=== PATIENT | male | born 1990 | race Caucasian/White ===

== ENCOUNTER 2021-07-29 10:48 | Emergency (ER) | payer MEDICAID ==
[2021-07-29] MEDS ORDERED: Sodium Chloride 0.9% 1,000 ML IV SCH (11:15)
[2021-07-29] MEDS ORDERED: Ibuprofen Susp 100 MG/5 ML 5 ML UD Cup PEGTUBE ONE (11:16)
--- NOTE | 2021-07-29 11:44 | CR ---
[id number] RAD/RAD Chest PA or AP 1V EXAM: SINGLE VIEW CHEST. INDICATION: FEVER RHONCHI COMPARISON: NO PREVIOUS SIMILAR EXAM IS AVAILABLE FINDINGS: There is a tracheostomy There are minimal bilateral interstitial changes The patient is rotated to the right The cardiac silhouette is mildly prominent IMPRESSION: MINIMAL INTERSTITIAL CHANGES POSSIBLE VIRAL PNEUMONIA John Barrera MD 07/29/21 1988 Thank you for allowing us to participate in the care of your patient.
[2021-07-29 11:48] LABS: CHLORIDE,CL 100 mmol/L (98-107); SODIUM,NA 137 mmol/L (136-145)
[2021-07-29] MEDS ORDERED: Ciprofloxacin in D5W 400 MG in Premix Bag 1 BAG IV ONE ×2 (12:08)
--- NOTE | 2021-07-29 12:56 | EDM.PDOC ---
ED HPI GENERAL MEDICAL PROBLEM - General Chief Complaint: General Stated Complaint: CODE 1 Time Seen by Provider: 07/29/21 10:50 - History of Present Illness INITIAL COMMENTS - FREE TEXT/NARRATIVE: Arrived via EMS from [place] with report of fever. Recently had PEG tube change per report. They suspect he aspirated on vomit/tube feeding. Has trach, has urinary cath, has PEG tube. 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) Respiratory History: Reports: Other (See Below) (trach) Gastrointestinal History: Reports: Other (See Below) (has PEG tube) Neurological History: Reports: Brain Injury, Seizure, Other (See Below) (hypoxic brain injury) Psychiatric History: Reports: Addiction Social & Family History - Alcohol Use Alcohol Use History: Yes Alcohol Use Comment: Records show hx of alcoholsim in past - Recreational Drug Use Recreational Drug Use: Yes Recreational Drug Type: Reports: Methamphetamine Recreational Drug Use Comment: 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 - Living Situation & Occupation Living situation: Reports: Extended Care Facility ED ROS GENERAL - Review of Systems Review Of Systems: Unable To Obtain Reason Not Obtained: nonverbal ED EXAM, GENERAL - Physical Exam Exam: See Below Exam Limited By: Altered Mental Status General Appearance: Alert, No Apparent Distress Eye Exam: Bilateral Eye: EOMI Ears: Normal External Exam Nose: Normal Inspection, Normal Mucosa, No Blood Throat/Mouth: No Airway Compromise, Other (dry) Head: Atraumatic, Normocephalic Neck: Non-Tender Respiratory/Chest: Rhonchi Cardiovascular: Regular Rate, Rhythm, No Edema, Tachycardia GI/Abdominal: Soft, Non-Tender, No Distention, Other (PEG) (Male) Exam: Other (urinary cath) Extremities: Non-Tender, Normal Capillary Refill Neurological: Alert, Slow to Respond, Sensory/Motor Deficit, Other (hypoxic brain injury) Psychiatric: Normal Affect, Other (at baseline) Skin Exam: Warm, Dry, Normal Color, No Rash Lymphatic: No Adenopathy Course - Vital Signs Last Recorded V/S: Last Vital Signs Temp 98.2 F 07/29/21 12:55 Pulse 99 07/29/21 12:21 Resp 14 07/29/21 12:21 BP 104/48 L 07/29/21 12:21 Pulse Ox 99 07/29/21 12:21 - Orders/Labs/Meds Orders: Active Orders 24 hr Category Date Time Status Urinary Catheter Assessment [RC] ASDIRECTED Care 07/29/21 13:49 Active Urinary Catheter Insertion [Insert Urinary Catheter] [ Care 07/29/21 14:00 Ordered OM.PC] Q24H Urinary Catheter Removal [RC] PER UNIT ROUTINE Care 07/29/21 13:48 Active CULTURE BLOOD [BC] Stat Lab 07/29/21 10:55 Received CULTURE BLOOD [BC] Stat Lab 07/29/21 11:25 Received Sodium Chloride 0.9% [Normal Saline] 1,000 ml Med 07/29/21 11:15 Active IV ASDIRECTED Blood Culture x2 Reflex Set [OM.PC] Stat Oth 07/29/21 10:57 Ordered Medication Orders Sodium Chloride (Normal Saline) 1,000 mls @ 150 mls/hr IV ASDIRECTED GREGORIO Last Admin: 07/29/21 11:05 Dose: 150 mls/hr Documented by: PUNEET Labs: Laboratory Tests 07/29/21 07/29/21 07/29/21 Range/Units 11:05 11:25 11:25 WBC 12.5 H (4.0-10.0) x10^3/uL RBC 4.57 (4.5-6.0) x10^6/uL Hgb 13.3 L (14.0-18.0) g/dL Hct 39.5 L (40.0-52.0) % MCV 86.4 (78.0-93.0) fL MCH 29.1 (26.0-32.0) pg MCHC 33.7 (32.0-36.0) g/dL RDW Coeff of Vanessa 12.6 (10.0-15.0) % Plt Count 196 (130-400) x10^3/uL Immature Gran % (Auto) 0.20 (0.00-0.43) % Neut % (Auto) 84.9 H (50.0-80.0) % Lymph % (Auto) 7.8 L (25.0-50.0) % [place] % (Auto) 6.8 (2.0-11.0) % Eos % (Auto) 0.1 (0.0-4.0) % Baso % (Auto) 0.2 (0.2-1.2) % Neut # (Auto) 10.6 H (1.8-7.7) x10^3/uL Lymph # (Auto) 1.0 (1.0-4.8) x10^3/uL [place] # (Auto) 0.9 H (0.0-0.8) x10^3/uL Eos # (Auto) 0.0 (0.0-0.5) x10^3/uL Baso # (Auto) 0.0 (0.0-0.2) x10^3/uL Immature Gran # (Auto) 0.02 (0.00-0.07) x10^3/uL Sodium 137 (136-145) mmol/L Potassium 4.0 (3.5-5.1) mmol/L Chloride 100 (98-107) mmol/L Carbon Dioxide 27 (21-32) mmol/L Anion Gap 14.0 (5-15) mmol/L BUN 28 H (7-18) mg/dL Creatinine 1.1 (0.70-1.30) mg/dL Est Cr Clr Drug Dosing TNP Estimated GFR (MDRD) > 60 Glucose 142 H (70-99) mg/dL Calcium 8.8 (8.5-10.1) mg/dL Corrected Calcium 9.8 (8.5-10.1) mg/dL Total Bilirubin 1.0 (0.2-1.0) mg/dL AST 37 (15-37) U/L ALT 58 (16-63) U/L Alkaline Phosphatase 134 H (46-116) U/L Total Protein 6.8 (6.4-8.2) g/dL Albumin 2.8 L (3.4-5.0) g/dL Globulin 4.0 Albumin/Globulin Ratio 0.70 Urine Color Yellow (YELLOW) Urine Appearance Cloudy H (CLEAR) Urine pH 7.0 (5.0-8.0) Ur Specific [place] 1.020 Urine Protein >=300 H (NEGATIVE) mg/dL Urine Glucose (UA) Negative (NEGATIVE) mg/dL Urine Ketones Negative (NEGATIVE) mg/dL Urine Occult Blood Large H (NEGATIVE) Urine Nitrite Positive H (NEGATIVE) Urine Bilirubin Small H (NEGATIVE) Urine Urobilinogen 2.0 H (0.2) EU/dL Ur Leukocyte Esterase Large H (NEGATIVE) Urine RBC 40-50 H (NOT SEEN) /HPF Urine WBC >100 H (NOT SEEN) /HPF Ur Squamous Epith Cells Not seen (NOT SEEN) /HPF Amorphous Sediment Few Urine Bacteria Moderate H (NOT SEEN) /HPF Urine Mucus Rare H (NOT SEEN) /LPF Meds: Medications Generic Name Dose Route Start Last Admin Trade Name Freq PRN Reason Stop Dose Admin Sodium Chloride 1,000 mls @ 150 mls/hr 07/29/21 11:15 07/29/21 11:05 Normal Saline IV 150 mls/hr ASDIRECTED GREGORIO Administration Discontinued Medications Generic Name Dose Route Start Last Admin Trade Name Freq PRN Reason Stop Dose Admin Ciprofloxacin/Dextrose 400 mg/ 200 mls @ 200 mls/hr 07/29/21 12:08 07/29/21 14:46 Premix IV 07/29/21 13:07 200 mls/hr STAT ONE Administration Ibuprofen 400 mg 07/29/21 11:16 07/29/21 12:00 Ibuprofen Susp 100 Mg/5 Ml 5 Ml Ud Cup [id number] 07/29/21 11:17 400 mg ONETIME ONE Administration - Re-Assessments/Exams Free Text/Narrative Re-Assessment/Exam: 07/29/21 13:34 Labs including blood cultures taken, attempted sputum culture. CXR show some interstitial changes, possible PNA. Urine shows UTI. Cipro given IV, then will give po. Plan is to send back to assisted with po cipro rx, probiotic rx, increase fluids. O2 sat has remained high 90s on room air. Temp responded to ibuprofen. 07/29/21 14:55 Ok to change PO RX to say per PEG instead Departure - Departure Time of Disposition: 14:40 Disposition: DC/Tfer to [facility] Condition: Good Clinical Impression: UTI (urinary tract infection) Qualifiers: Urinary tract infection type: catheter-associated UTI Indwelling urinary catheter type: indwelling urethral catheter Encounter type: initial encounter Qualified Code(s): T83.511A - Infection and inflammatory reaction due to indwelling urethral catheter, initial encounter Pneumonia Qualifiers: Pneumonia type: aspiration pneumonia Aspiration pneumonia type: due to vomit Laterality: bilateral Lung location: unspecified part of lung Qualified Code(s): J69.0 - Pneumonitis due to inhalation of food and vomit - Discharge Information Instructions: Urinary Tract Infection, Adult, [id number], Hospital-Acquired Pneumonia Referrals: Iesha Braden DO [Primary Care Provider] - Forms: ED Department Discharge Additional Instructions: Back to assisted. Cipro and probiotic as directed. Increase fluids. Follow up with Primary Care Provider on Sunday, sooner if needed. Sepsis Event Note (ED) - Focused Exam Vital Signs: Vital Signs Temp Temp Pulse Resp BP Pulse Ox 07/29/21 12:55 98.2 F 07/29/21 12:21 99 14 104/48 L 99 07/29/21 12:00 102.3 F H 07/29/21 10:48 102.3 F H 112 H 26 H 133/109 H 94 L - Problem List & Annotations (1) UTI (urinary tract infection) SNOMED Code(s): 59488902 Code(s): N39.0 - URINARY TRACT INFECTION, SITE NOT SPECIFIED Status: Acute Current Visit: Yes Qualifiers: Urinary tract infection type: catheter-associated UTI Indwelling urinary catheter type: indwelling urethral catheter Encounter type: initial encounter Qualified Code(s): T83.511A - Infection and inflammatory reaction due to indwelling urethral catheter, initial encounter; N39.0 - Urinary tract infection, site not specified (2) Pneumonia SNOMED Code(s): 157201251 Code(s): J18.9 - PNEUMONIA, UNSPECIFIED ORGANISM Status: Acute Current Visit: Yes Qualifiers: Pneumonia type: aspiration pneumonia Aspiration pneumonia type: due to vomit Laterality: bilateral Lung location: unspecified part of lung Qualified Code(s): J69.0 - Pneumonitis due to inhalation of food and vomit - Problem List Review Problem List Initiated/Reviewed/Updated: Yes - My Orders Last 24 Hours: My Active Orders 07/29/21 10:55 CULTURE BLOOD [BC] Stat 07/29/21 10:57 Blood Culture x2 Reflex Set [OM.PC] Stat 07/29/21 11:15 Sodium Chloride 0.9% [Normal Saline] 1,000 ml IV ASDIRECTED 07/29/21 11:25 CULTURE BLOOD [BC] Stat 07/29/21 13:48 Urinary Catheter Removal [RC] PER UNIT ROUTINE 07/29/21 13:49 Urinary Catheter Assessment [RC] ASDIRECTED 07/29/21 14:00 Urinary Catheter Insertion [Insert Urinary Catheter] [OM.PC] Q24H - Assessment/Plan Last 24 Hours: My Active Orders 07/29/21 10:55 CULTURE BLOOD [BC] Stat 07/29/21 10:57 Blood Culture x2 Reflex Set [OM.PC] Stat 07/29/21 11:15 Sodium Chloride 0.9% [Normal Saline] 1,000 ml IV ASDIRECTED 07/29/21 11:25 CULTURE BLOOD [BC] Stat 07/29/21 13:48 Urinary Catheter Removal [RC] PER UNIT ROUTINE 07/29/21 13:49 Urinary Catheter Assessment [RC] ASDIRECTED 07/29/21 14:00 Urinary Catheter Insertion [Insert Urinary Catheter] [OM.PC] Q24H
== END 2021-07-29 14:40 ==
LOC: VM.ED 10:48
DX: T83.511A Infection and inflammatory reaction due to indwelling urethral catheter, initial encounter (principal); N39.0 Urinary tract infection, site not specified; J69.0 Pneumonitis due to inhalation of food and vomit; Z88.0 Allergy status to penicillin
CPT/HCPCS: 36415; 71045; 80053; 81001; 85025; 87040; 87077; 87186; 96365; 99284-25; A9270-GY; J0744; J7030

== ENCOUNTER 2021-10-18 04:44 | Emergency (ER) | payer MEDICAID | END 2021-10-18 06:15 | LOC: VM.ED 04:44 | DX: T83.098A Other mechanical complication of other urinary catheter, initial encounter (principal); Z88.0 Allergy status to penicillin; Z88.2 Allergy status to sulfonamides; Z88.8 Allergy status to other drugs, medicaments and biological substances | CPT/HCPCS: 51705; 51798; 99283; 99283-25 ==

== ENCOUNTER 2021-11-19 07:55 | Emergency (ER) | payer MEDICAID ==
[2021-11-19 08:30] LABS: CHLORIDE,CL 103 mmol/L (98-107); SODIUM,NA 140 mmol/L (136-145)
[2021-11-19 08:31] LABS: ANION GAP 12.7 mmol/L (5-15)
[2021-11-19] MEDS ORDERED: Sodium Chloride 0.9% Inhalation Soln 5 ML Neb INH PRN (10:40)
[2021-11-19] MEDS ORDERED: Racepinephrine 2.25% 0.5 ML Neb Soln NEB ONE (10:40)
[2021-11-19] MEDS ORDERED: LORazepam 2 MG/ML SDV IVPUSH ONE (12:11)
== END 2021-11-19 12:20 | disposition short-term general hospital (02) ==
LOC: VM.ED 07:55
DX: J39.8 Other specified diseases of upper respiratory tract (principal); Z88.2 Allergy status to sulfonamides; Z88.0 Allergy status to penicillin
CPT/HCPCS: 36415; 71045; 80053; 85025; 85610; 85730; 86140; 94640; 96374; 99284; 99285-25; J2060

== ENCOUNTER 2021-12-25 07:46 | Inpatient (IN) | payer MEDICAID ==
[2021-12-25] MEDS ORDERED: Sodium Chloride 0.9% 10 ML Syringe FLUSH PRN (08:36)
[2021-12-25] MEDS ORDERED: cefTRIAXone 1 GM Vial IVPUSH ONE (09:05)
[2021-12-25 09:21] LABS: PTT,PARTIAL THROMBOPLSTIN TIME 24.4 SEC (20.5-30.9)
[2021-12-25 09:31] LABS: CHLORIDE,CL 102 mmol/L (98-107); SODIUM,NA 142 mmol/L (136-145)
[2021-12-25 09:32] LABS: ANION GAP 14.8 mmol/L (5-15)
[2021-12-25] MEDS ORDERED: Azithromycin 500 MG in Sodium Chloride 0.9% 250 ML IV ONE (09:36)
[2021-12-25 09:50] LABS: CORONAVIRUS COVID-19 NAA NEGATIVE (NEGATIVE); RESPIRATORY SYNCYTIAL VIR NAA NEGATIVE (NEGATIVE)
[2021-12-25 09:56] LABS: PCO2 ARTERIAL,POC 50 mmHg (35-48)
[2021-12-25] MEDS ORDERED: Acetaminophen Susp 160 MG/5 ML 120 ML Bottle PEGTUBE PRN (15:49)
[2021-12-25] MEDS ORDERED: Propranolol 20 MG Tab SCH (16:00)
[2021-12-25] MEDS: Baclofen 10 MG Tab PEGTUBE SCH ×2 (17:35→21:40)
[2021-12-25] MEDS: levETIRAcetam Soln 500 MG/5 ML Cup PEGTUBE SCH (21:29)
[2021-12-25] MEDS: guaiFENesin 100 MG/5 ML Soln 10 ML UD Cup PEGTUBE SCH (21:30)
[2021-12-25] MEDS: Glycopyrrolate 1 MG Tab GTUBE SCH (21:40)
[2021-12-25] MEDS: Gabapentin 400 MG Cap PEGTUBE SCH ×2 (21:40→22:30)
[2021-12-25] MEDS: Melatonin 3 MG Tab GTUBE SCH (21:42)
[2021-12-25] MEDS: cloNIDine 0.1 MG Tab PEGTUBE SCH ×2 (21:42→22:30)
[2021-12-25] MEDS: Propranolol 20 MG Tab GTUBE SCH (21:55)
[2021-12-26] MEDS: Sodium Chloride 0.9% Inhalation Soln 5 ML Neb INH SCH ×3 (01:28→20:18)
[2021-12-26] MEDS: Acetaminophen Susp 160 MG/5 ML 120 ML Bottle PEGTUBE SCH ×4 (01:28→20:19)
[2021-12-26] MEDS: Propranolol 20 MG Tab GTUBE SCH ×4 (01:36→19:07)
[2021-12-26 07:11] LABS: CHLORIDE,CL 102 mmol/L (98-107); SODIUM,NA 142 mmol/L (136-145)
[2021-12-26 07:12] LABS: ANION GAP 12.2 mmol/L (5-15)
[2021-12-26] MEDS: Enoxaparin 40 MG/0.4 ML Syringe SUBCUT SCH (09:00)
[2021-12-26] MEDS: Famotidine 20 MG Tab PEGTUBE SCH (09:00)
[2021-12-26] MEDS: Glycopyrrolate 1 MG Tab GTUBE SCH ×3 (09:00→20:16)
[2021-12-26] MEDS ORDERED: Azithromycin 500 MG in Sodium Chloride 0.9% 250 ML IV SCH (09:00)
[2021-12-26] MEDS: Gabapentin 400 MG Cap PEGTUBE SCH ×3 (09:01→20:12)
[2021-12-26] MEDS: cloNIDine 0.1 MG Tab PEGTUBE SCH ×3 (09:01→20:17)
[2021-12-26] MEDS: Baclofen 10 MG Tab PEGTUBE SCH ×3 (09:01→20:13)
[2021-12-26] MEDS: levETIRAcetam Soln 500 MG/5 ML Cup PEGTUBE SCH ×2 (09:01→20:10)
[2021-12-26] MEDS: cefTRIAXone 1 GM Vial IVPUSH SCH (09:04)
[2021-12-26] MEDS: guaiFENesin 100 MG/5 ML Soln 10 ML UD Cup PEGTUBE SCH ×2 (09:05→20:11)
[2021-12-26] MEDS ORDERED: VANCOmycin 1.5 GM/300 ML 300 ML IV ONE (15:30)
[2021-12-26] MEDS: Melatonin 3 MG Tab GTUBE SCH (20:15)
[2021-12-27] MEDS: Propranolol 20 MG Tab GTUBE SCH ×4 (01:25→18:20)
[2021-12-27] MEDS: Sodium Chloride 0.9% Inhalation Soln 5 ML Neb INH SCH ×2 (06:05→21:09)
[2021-12-27] MEDS ORDERED: Ondansetron 4 MG/2 ML SDV IVPUSH PRN (09:33)
[2021-12-27] MEDS ORDERED: Ondansetron 4 MG/2 ML SDV IVPUSH ONE (09:45)
[2021-12-27] MEDS: Enoxaparin 40 MG/0.4 ML Syringe SUBCUT SCH (10:14)
[2021-12-27] MEDS: guaiFENesin 100 MG/5 ML Soln 10 ML UD Cup PEGTUBE SCH ×2 (10:14→20:32)
[2021-12-27] MEDS: Gabapentin 400 MG Cap PEGTUBE SCH ×3 (10:15→20:33)
[2021-12-27] MEDS: Famotidine 20 MG Tab PEGTUBE SCH (10:15)
[2021-12-27] MEDS: cloNIDine 0.1 MG Tab PEGTUBE SCH ×3 (10:15→20:36)
[2021-12-27] MEDS: Glycopyrrolate 1 MG Tab GTUBE SCH ×3 (10:15→20:34)
[2021-12-27] MEDS: Baclofen 10 MG Tab PEGTUBE SCH ×3 (10:15→20:36)
[2021-12-27] MEDS: levETIRAcetam Soln 500 MG/5 ML Cup PEGTUBE SCH ×2 (10:17→20:32)
[2021-12-27] MEDS: cefTRIAXone 1 GM Vial IVPUSH SCH (10:17)
[2021-12-27] MEDS: Acetaminophen Susp 160 MG/5 ML 120 ML Bottle PEGTUBE SCH ×3 (10:19→20:40)
[2021-12-27 16:28] LABS: CHLORIDE,CL 102 mmol/L (98-107); SODIUM,NA 140 mmol/L (136-145)
[2021-12-27 16:29] LABS: ANION GAP 12.9 mmol/L (5-15)
[2021-12-27] MEDS: Clindamycin HCl 150 MG Cap GTUBE SCH (16:51)
[2021-12-27] MEDS: Melatonin 3 MG Tab GTUBE SCH (20:35)
[2021-12-28] MEDS: Clindamycin HCl 150 MG Cap GTUBE SCH ×2 (01:14→08:26)
[2021-12-28] MEDS: Propranolol 20 MG Tab GTUBE SCH ×2 (01:14→06:09)
[2021-12-28] MEDS: Sodium Chloride 0.9% Inhalation Soln 5 ML Neb INH SCH (06:09)
[2021-12-28] MEDS: Gabapentin 400 MG Cap PEGTUBE SCH (08:25)
[2021-12-28] MEDS: Baclofen 10 MG Tab PEGTUBE SCH (08:25)
[2021-12-28] MEDS: cloNIDine 0.1 MG Tab PEGTUBE SCH (08:26)
[2021-12-28] MEDS: Famotidine 20 MG Tab PEGTUBE SCH (08:26)
[2021-12-28] MEDS: Glycopyrrolate 1 MG Tab GTUBE SCH (08:26)
[2021-12-28] MEDS: levETIRAcetam Soln 500 MG/5 ML Cup PEGTUBE SCH (08:31)
[2021-12-28] MEDS: guaiFENesin 100 MG/5 ML Soln 10 ML UD Cup PEGTUBE SCH (08:32)
[2021-12-28] MEDS: cefTRIAXone 1 GM Vial IVPUSH SCH (08:36)
[2021-12-28] MEDS: Acetaminophen Susp 160 MG/5 ML 120 ML Bottle PEGTUBE SCH (08:37)
[2021-12-28] MEDS: Enoxaparin 40 MG/0.4 ML Syringe SUBCUT SCH (08:42)
== END 2021-12-28 11:36 | DRG 177 ==
LOC: VM.ED 07:46 → VM.MS 12:39
PROVIDERS: ADMIT Physician Assistant; ATTEND Physician Assistant
DX: J69.0 Pneumonitis due to inhalation of food and vomit (principal); J96.01 Acute respiratory failure with hypoxia; T83.511A Infection and inflammatory reaction due to indwelling urethral catheter, initial encounter; E46 Unspecified protein-calorie malnutrition; Z86.74 Personal history of sudden cardiac arrest; Z87.820 Personal history of traumatic brain injury; R33.9 Retention of urine, unspecified; Z20.822 Contact with and (suspected) exposure to COVID-19; F45.8 Other somatoform disorders; G40.909 Epilepsy, unspecified, not intractable, without status epilepticus; I10 Essential (primary) hypertension; T75.4XXS Electrocution, sequela; Z88.1 Allergy status to other antibiotic agents; R82.71 Bacteriuria; B95.61 Methicillin susceptible Staphylococcus aureus infection as the cause of diseases classified elsewhere; B96.89 Other specified bacterial agents as the cause of diseases classified elsewhere; N31.9 Neuromuscular dysfunction of bladder, unspecified; Z88.0 Allergy status to penicillin; Z88.2 Allergy status to sulfonamides; Z79.899 Other long term (current) drug therapy; Z93.0 Tracheostomy status; Z96.0 Presence of urogenital implants; Z93.1 Gastrostomy status; Z68.21 Body mass index [BMI] 21.0-21.9, adult
CPT/HCPCS: 0241U; 36415; 36600; 71045; 80048; 80053; 81001; 82803; 82947; 83605; 83735; 83880; 84100; 84145; 85025; 85610; 85730; 86140; 87040; 87070; 87077; 87086; 87088; 87186; 87205; 94760; 96365; 96375; 99284; 99285-25; A9270-GY; J0456; J0696; J1650; J2405; J3370; J7050; U0002

== ENCOUNTER 2022-02-26 00:34 | Inpatient (IN) | payer MEDICAID ==
[2022-02-26] MEDS ORDERED: LORazepam 2 MG/ML SDV IVPUSH ONE (02:05)
[2022-02-26] MEDS ORDERED: LORazepam 2 MG/ML SDV ONE (02:09)
[2022-02-26 02:37] LABS: ANION GAP 11.4 mmol/L (5-15); CHLORIDE,CL 99 mmol/L (98-107); ESTIMATED GFR 69 mL/min (>=60); SODIUM,NA 136 mmol/L (136-145)
[2022-02-26] MEDS: cefTRIAXone 2 GM Vial IVPUSH SCH ×2 (02:46→12:17)
[2022-02-26] MEDS ORDERED: VANCOmycin 1.25 GM/250 ML 1.25 GM in Premix Bag 1 BAG IV SCH (03:45)
[2022-02-26] MEDS ORDERED: Sodium Chloride 0.9% 10 ML Syringe FLUSH PRN (03:50)
[2022-02-26] MEDS ORDERED: LORazepam 2 MG/ML SDV IVPUSH PRN (03:59)
[2022-02-26] MEDS ORDERED: Dextrose 5%-0.45% NaCl 1,000 ML IV SCH (04:00)
[2022-02-26] MEDS ORDERED: VANCOmycin 1.25 GM/250 ML 250 ML ONE (04:40)
[2022-02-26] MEDS ORDERED: ACETAMINOPHEN 650 MG/20.3 ML PEGTUBE PRN (05:07)
[2022-02-26] MEDS ORDERED: PROPRANOLOL HCL 40 MG PEGTUBE SCH (05:15)
[2022-02-26] MEDS ORDERED: GUAIFENESIN 400 MG PEGTUBE SCH (09:00)
[2022-02-26] MEDS ORDERED: [UNRECOGNIZED DRUG - OTHER] PO SCH ×2 (09:00→09:30)
[2022-02-26] MEDS ORDERED: CEFUROXIME PO SCH ×2 (09:00→09:30)
[2022-02-26] MEDS ORDERED: GABAPENTIN 250 MG/5 ML PEGTUBE SCH (09:00)
[2022-02-26] MEDS ORDERED: ACETAMINOPHEN 500 MG/15 ML PEGTUBE SCH (09:00)
[2022-02-26] MEDS ORDERED: Glycopyrrolate 1 MG Tab NGTUBE SCH (09:00)
[2022-02-26] MEDS ORDERED: Non-Formulary Medication 1 Each (Melatonin [Melatonin] 10 MG Tablet) PEGTUBE SCH (09:00)
[2022-02-26] MEDS ORDERED: BACLOFEN PEGTUBE SCH (09:00)
[2022-02-26] MEDS ORDERED: Acetaminophen Susp 160 MG/5 ML 120 ML Bottle PEGTUBE PRN (09:21)
[2022-02-26] MEDS: guaiFENesin 100 MG/5 ML Soln 10 ML UD Cup PEGTUBE SCH ×2 (10:11→20:30)
[2022-02-26] MEDS: Acetaminophen 500 MG Tab PEGTUBE SCH ×3 (10:12→20:29)
[2022-02-26] MEDS: levETIRAcetam Soln 500 MG/5 ML Cup PEGTUBE SCH ×2 (10:14→20:31)
[2022-02-26] MEDS: Famotidine 20 MG Tab PEGTUBE SCH (10:15)
[2022-02-26] MEDS: Propranolol 20 MG Tab FTUBE SCH ×3 (10:16→20:24)
[2022-02-26] MEDS: Baclofen 10 MG Tab PEGTUBE SCH ×3 (10:19→20:29)
[2022-02-26] MEDS: cloNIDine 0.1 MG Tab PEGTUBE SCH ×3 (10:20→20:25)
[2022-02-26 10:30] LABS: ANION GAP 12.9 mmol/L (5-15)
[2022-02-26] MEDS ORDERED: Sodium Chloride 0.9% 1,000 ML IV SCH (12:30)
[2022-02-26] MEDS: Albuterol/Ipratropium 3.0-0.5 MG/3 ML Neb Soln NEB SCH ×2 (13:37→20:29)
[2022-02-26] MEDS: Levofloxacin/Dextrose 5%-Water 750 MG in Premix Bag 1 BAG IV SCH (13:47)
[2022-02-26] MEDS: Lactobacillus Rhamnosus GG (Probiotic) Cap PO SCH (13:53)
[2022-02-26] MEDS: Gabapentin 400 MG Cap PEGTUBE SCH ×2 (13:53→20:24)
[2022-02-26] MEDS: Glycopyrrolate 1 MG Tab GTUBE SCH ×2 (13:55→20:28)
[2022-02-26] MEDS: Bacitracin Oint 15 GM Tube TOP SCH (16:13)
[2022-02-26] MEDS: Bacitracin Oint 1 GM U/D Packet TOP SCH (16:15)
[2022-02-26] MEDS: Melatonin 3 MG Tab GTUBE SCH (20:25)
[2022-02-26] MEDS ORDERED: Melatonin 3 MG Tab FTUBE SCH (21:00)
[2022-02-27] MEDS: Propranolol 20 MG Tab FTUBE SCH ×4 (03:55→20:13)
[2022-02-27] MEDS: Acetaminophen 500 MG Tab PEGTUBE SCH ×4 (04:02→20:14)
[2022-02-27] MEDS: Bacitracin Oint 1 GM U/D Packet TOP SCH ×2 (06:25→13:13)
[2022-02-27 06:57] LABS: ANION GAP 9.9 mmol/L (5-15)
[2022-02-27] MEDS: Albuterol/Ipratropium 3.0-0.5 MG/3 ML Neb Soln NEB SCH ×2 (07:15→20:15)
[2022-02-27] MEDS ORDERED: cefTRIAXone 2 GM Vial IVPUSH SCH (09:00)
[2022-02-27] MEDS: Polyethylene Glycol 3350 Powder 17 GM Packet PO SCH (09:10)
[2022-02-27] MEDS: Gabapentin 400 MG Cap PEGTUBE SCH ×3 (09:12→20:13)
[2022-02-27] MEDS: guaiFENesin 100 MG/5 ML Soln 10 ML UD Cup PEGTUBE SCH ×2 (09:12→20:15)
[2022-02-27] MEDS: Baclofen 10 MG Tab PEGTUBE SCH ×3 (09:12→20:09)
[2022-02-27] MEDS: levETIRAcetam Soln 500 MG/5 ML Cup PEGTUBE SCH ×2 (09:14→20:14)
[2022-02-27] MEDS: cloNIDine 0.1 MG Tab PEGTUBE SCH ×3 (09:14→20:11)
[2022-02-27] MEDS: Glycopyrrolate 1 MG Tab GTUBE SCH ×3 (09:14→20:12)
[2022-02-27] MEDS: Lactobacillus Rhamnosus GG (Probiotic) Cap PO SCH (09:15)
[2022-02-27] MEDS: Famotidine 20 MG Tab PEGTUBE SCH (09:15)
[2022-02-27] MEDS: Levofloxacin/Dextrose 5%-Water 750 MG in Premix Bag 1 BAG IV SCH (12:45)
[2022-02-27] MEDS: Bacitracin Oint 15 GM Tube TOP SCH ×3 (12:55→20:23)
[2022-02-27] MEDS: Melatonin 3 MG Tab GTUBE SCH (20:10)
[2022-02-28] MEDS: Propranolol 20 MG Tab FTUBE SCH ×4 (03:30→20:03)
[2022-02-28 07:10] LABS: ANION GAP 13.2 mmol/L (5-15)
[2022-02-28] MEDS: Albuterol/Ipratropium 3.0-0.5 MG/3 ML Neb Soln NEB SCH ×2 (07:21→20:00)
[2022-02-28] MEDS: Bacitracin Oint 1 GM U/D Packet TOP SCH ×3 (07:38→21:39)
[2022-02-28] MEDS: Acetaminophen 500 MG Tab PEGTUBE SCH ×3 (08:36→20:01)
[2022-02-28] MEDS: levETIRAcetam Soln 500 MG/5 ML Cup PEGTUBE SCH ×2 (08:37→20:05)
[2022-02-28] MEDS: guaiFENesin 100 MG/5 ML Soln 10 ML UD Cup PEGTUBE SCH ×2 (08:37→20:01)
[2022-02-28] MEDS: Baclofen 10 MG Tab PEGTUBE SCH ×3 (08:38→20:05)
[2022-02-28] MEDS: Gabapentin 400 MG Cap PEGTUBE SCH ×3 (08:40→20:03)
[2022-02-28] MEDS: Famotidine 20 MG Tab PEGTUBE SCH (08:44)
[2022-02-28] MEDS: Glycopyrrolate 1 MG Tab GTUBE SCH ×3 (08:44→20:16)
[2022-02-28] MEDS: Lactobacillus Rhamnosus GG (Probiotic) Cap PO SCH (08:46)
[2022-02-28] MEDS: cloNIDine 0.1 MG Tab PEGTUBE SCH ×3 (08:47→20:03)
[2022-02-28] MEDS: Polyethylene Glycol 3350 Powder 17 GM Packet PO SCH (08:50)
[2022-02-28] MEDS: Bacitracin Oint 15 GM Tube TOP SCH ×2 (08:50→20:07)
[2022-02-28] MEDS ORDERED: Ondansetron 4 MG/2 ML SDV IVPUSH PRN (09:02)
[2022-02-28] MEDS ORDERED: Iopamidol 612 MG/ML 100 ML Bottle IVPUSH ONE (09:13)
[2022-02-28] MEDS: Levofloxacin/Dextrose 5%-Water 750 MG in Premix Bag 1 BAG IV SCH (11:37)
[2022-02-28] MEDS ORDERED: Sodium Chloride 0.9% 1,000 ML IV SCH (17:15)
[2022-02-28] MEDS: Tamsulosin 0.4 MG Cap.ER PO SCH (17:42)
[2022-02-28] MEDS: Melatonin 3 MG Tab GTUBE SCH (20:03)
[2022-02-28] MEDS ORDERED: Flumazenil 0.1 MG/ML 5 ML MDV IVPUSH PRN (21:53)
[2022-02-28] MEDS ORDERED: LORazepam 2 MG/ML SDV IVPUSH PRN (21:53)
[2022-03-01] MEDS: Propranolol 20 MG Tab FTUBE SCH ×4 (03:05→21:13)
[2022-03-01] MEDS: Albuterol/Ipratropium 3.0-0.5 MG/3 ML Neb Soln NEB SCH ×2 (06:39→21:17)
[2022-03-01 07:22] LABS: ANION GAP 13.3 mmol/L (5-15)
[2022-03-01] MEDS: levETIRAcetam Soln 500 MG/5 ML Cup PEGTUBE SCH ×2 (10:09→21:16)
[2022-03-01] MEDS: Polyethylene Glycol 3350 Powder 17 GM Packet PO SCH (10:09)
[2022-03-01] MEDS: guaiFENesin 100 MG/5 ML Soln 10 ML UD Cup PEGTUBE SCH ×2 (10:09→21:16)
[2022-03-01] MEDS: Acetaminophen 500 MG Tab PEGTUBE SCH ×3 (10:10→21:13)
[2022-03-01] MEDS: Baclofen 10 MG Tab PEGTUBE SCH ×3 (10:11→21:11)
[2022-03-01] MEDS: Glycopyrrolate 1 MG Tab GTUBE SCH ×3 (10:12→21:12)
[2022-03-01] MEDS: cloNIDine 0.1 MG Tab PEGTUBE SCH ×3 (10:12→21:16)
[2022-03-01] MEDS: Gabapentin 400 MG Cap PEGTUBE SCH ×3 (10:12→21:15)
[2022-03-01] MEDS: Famotidine 20 MG Tab PEGTUBE SCH (10:12)
[2022-03-01] MEDS: Lactobacillus Rhamnosus GG (Probiotic) Cap PO SCH (10:13)
[2022-03-01] MEDS: Tamsulosin 0.4 MG Cap.ER PO SCH (10:13)
[2022-03-01] MEDS: Bacitracin Oint 15 GM Tube TOP SCH ×2 (10:14→21:18)
[2022-03-01] MEDS ORDERED: Ketorolac 15 MG/ML SDV IVPUSH PRN (11:27)
[2022-03-01] MEDS: Bacitracin Oint 1 GM U/D Packet TOP SCH (12:43)
[2022-03-01] MEDS: Levofloxacin/Dextrose 5%-Water 750 MG in Premix Bag 1 BAG IV SCH (14:25)
[2022-03-01] MEDS: Melatonin 3 MG Tab GTUBE SCH (21:11)
[2022-03-02] MEDS: Bacitracin Oint 1 GM U/D Packet TOP SCH ×2 (01:24→10:39)
[2022-03-02] MEDS: Propranolol 20 MG Tab FTUBE SCH ×2 (03:47→08:57)
[2022-03-02] MEDS: cloNIDine 0.1 MG Tab PEGTUBE SCH (08:55)
[2022-03-02] MEDS: levETIRAcetam Soln 500 MG/5 ML Cup PEGTUBE SCH (08:55)
[2022-03-02] MEDS: Baclofen 10 MG Tab PEGTUBE SCH (08:56)
[2022-03-02] MEDS: Gabapentin 400 MG Cap PEGTUBE SCH (08:56)
[2022-03-02] MEDS: Lactobacillus Rhamnosus GG (Probiotic) Cap PO SCH (08:56)
[2022-03-02] MEDS: Tamsulosin 0.4 MG Cap.ER PO SCH (08:57)
[2022-03-02] MEDS: Famotidine 20 MG Tab PEGTUBE SCH (08:57)
[2022-03-02] MEDS: Glycopyrrolate 1 MG Tab GTUBE SCH (08:57)
[2022-03-02] MEDS: guaiFENesin 100 MG/5 ML Soln 10 ML UD Cup PEGTUBE SCH (08:58)
[2022-03-02] MEDS: Acetaminophen 500 MG Tab PEGTUBE SCH (08:58)
[2022-03-02] MEDS: Polyethylene Glycol 3350 Powder 17 GM Packet PO SCH (08:58)
[2022-03-02] MEDS: Bacitracin Oint 15 GM Tube TOP SCH (08:59)
[2022-03-02] MEDS: Albuterol/Ipratropium 3.0-0.5 MG/3 ML Neb Soln NEB SCH (10:38)
== END 2022-03-02 11:00 | DRG 871 ==
LOC: VM.ED 00:34 → UNDOADMIN 03:45 → VM.ED 03:45 → VM.MS 03:45
PROVIDERS: ADMIT Physician Assistant; ATTEND Internal Medicine
DX: T83.518A Infection and inflammatory reaction due to other urinary catheter, initial encounter (principal); A41.9 Sepsis, unspecified organism; A41.89 Other specified sepsis; J18.9 Pneumonia, unspecified organism; Z86.74 Personal history of sudden cardiac arrest; N31.9 Neuromuscular dysfunction of bladder, unspecified; J96.01 Acute respiratory failure with hypoxia; T83.511A Infection and inflammatory reaction due to indwelling urethral catheter, initial encounter; N13.6 Pyonephrosis; Z88.0 Allergy status to penicillin; Z88.2 Allergy status to sulfonamides; Z88.8 Allergy status to other drugs, medicaments and biological substances; N17.9 Acute kidney failure, unspecified; G93.1 Anoxic brain damage, not elsewhere classified; E87.1 Hypo-osmolality and hyponatremia; G25.3 Myoclonus; R65.20 Severe sepsis without septic shock; I10 Essential (primary) hypertension; G40.909 Epilepsy, unspecified, not intractable, without status epilepticus; B96.4 Proteus (mirabilis) (morganii) as the cause of diseases classified elsewhere; B96.89 Other specified bacterial agents as the cause of diseases classified elsewhere; F45.8 Other somatoform disorders; R33.9 Retention of urine, unspecified; Z93.0 Tracheostomy status; Z79.899 Other long term (current) drug therapy; Z79.1 Long term (current) use of non-steroidal anti-inflammatories (NSAID); Z93.1 Gastrostomy status; Y84.6 Urinary catheterization as the cause of abnormal reaction of the patient, or of later complication, without mention of misadventure at the time of the procedure; Y92.89 Other specified places as the place of occurrence of the external cause
CPT/HCPCS: 36415; 71045; 71260; 74177; 80048; 80053; 81001; 83605; 83735; 83880; 84145; 84484; 85025; 86140; 87040; 87070; 87077; 87086; 87088; 87147; 87186; 87205; 93005; 94640; 94760; A9270-GY; J0696; J1956; J2060; J3370; J7030; J7620-GY; Q9967

== ENCOUNTER 2022-03-31 10:47 | Inpatient (IN) | payer MEDICAID ==
[2022-03-31] MEDS ORDERED: Sodium Chloride 0.9% 10 ML Syringe FLUSH PRN (11:10)
[2022-03-31] MEDS ORDERED: Sodium Chloride 0.9% 1,000 ML IV SCH (11:15)
[2022-03-31 12:23] LABS: ANION GAP 16.2 mmol/L (5-15); CHLORIDE,CL 98 mmol/L (98-107); ESTIMATED GFR 64 mL/min (>=60); SODIUM,NA 137 mmol/L (136-145)
[2022-03-31] MEDS: cefTRIAXone 2 GM Vial IVPUSH SCH (13:15)
[2022-03-31] MEDS: VANCOmycin 1.5 GM/300 ML 300 ML IV SCH (13:39)
[2022-03-31] MEDS ORDERED: VANCOmycin 1.5 GM/300 ML 300 ML IV ONE (13:45)
[2022-03-31] MEDS ORDERED: LORazepam 2 MG/ML SDV IVPUSH PRN (16:29)
[2022-03-31] MEDS: LORazepam 2 MG/ML SDV IVPUSH ONE (16:42)
[2022-03-31] MEDS ORDERED: Acetaminophen 650 MG Supp RECTAL PRN (16:55)
[2022-03-31] MEDS ORDERED: Enoxaparin 30 MG/0.3 ML Syringe SUBCUT SCH (17:00)
[2022-03-31] MEDS ORDERED: Ondansetron 4 MG/2 ML SDV IVPUSH PRN (17:16)
[2022-03-31] MEDS: Sodium Chloride 0.9% 1,000 ML IV ONE (19:49)
[2022-04-01] MEDS ORDERED: VANCOmycin 1.5 GM/300 ML 300 ML IV SCH (02:00)
== END 2022-03-31 20:20 | disposition short-term general hospital (02) | DRG 698 ==
LOC: VM.ED 10:47 → VM.MS 16:56
PROVIDERS: ADMIT Internal Medicine; ATTEND Internal Medicine
DX: T83.510A Infection and inflammatory reaction due to cystostomy catheter, initial encounter (principal); A41.9 Sepsis, unspecified organism; R65.20 Severe sepsis without septic shock; J96.01 Acute respiratory failure with hypoxia; N17.9 Acute kidney failure, unspecified; T83.511A Infection and inflammatory reaction due to indwelling urethral catheter, initial encounter; Z96.0 Presence of urogenital implants; N39.0 Urinary tract infection, site not specified; M62.838 Other muscle spasm; F45.8 Other somatoform disorders; N20.0 Calculus of kidney; G40.909 Epilepsy, unspecified, not intractable, without status epilepticus; G93.1 Anoxic brain damage, not elsewhere classified; Z87.440 Personal history of urinary (tract) infections; Z93.1 Gastrostomy status; I10 Essential (primary) hypertension; Z87.442 Personal history of urinary calculi; Z87.01 Personal history of pneumonia (recurrent); Z86.74 Personal history of sudden cardiac arrest; N31.9 Neuromuscular dysfunction of bladder, unspecified; Z93.0 Tracheostomy status; Z88.1 Allergy status to other antibiotic agents; Z88.0 Allergy status to penicillin; Z79.1 Long term (current) use of non-steroidal anti-inflammatories (NSAID); Y84.6 Urinary catheterization as the cause of abnormal reaction of the patient, or of later complication, without mention of misadventure at the time of the procedure; Y92.89 Other specified places as the place of occurrence of the external cause; Z88.8 Allergy status to other drugs, medicaments and biological substances; Z88.2 Allergy status to sulfonamides; Z79.899 Other long term (current) drug therapy; Z20.822 Contact with and (suspected) exposure to COVID-19
CPT/HCPCS: 36415; 71045; 80053; 81001; 82550; 83605; 83735; 84145; 84484; 85025; 85379; 86140; 87040; 87077; 87086; 87088; 87186; 93010; 94760; 99284; J0696; J2060; J3370; J7030; U0002